=== PATIENT | male | born 1990 | race Caucasian/White ===

== ENCOUNTER 2021-07-20 19:50 | Emergency (ER) | payer BC, OTHER ==
[2021-07-20] MEDS ORDERED: Cyclobenzaprine 10 MG Tab PO ONE (19:51)
[2021-07-20 21:35] VITALS: BP 155/95; PULSE 94
--- NOTE | 2021-07-20 22:15 | CT ---
PROCEDURE INFORMATION: Exam: CT Cervical Spine Without Contrast Exam date and time: 07/20/2021 10:05 PM Age: 31 years old Clinical indication: Neck pain; Additional info: Neck pain, hit head standing up in combine TECHNIQUE: Imaging protocol: Computed tomography images of the cervical spine without contrast. Radiation optimization: All CT scans at this facility use at least one of these dose optimization techniques: automated exposure control; mA and/or kV adjustment per patient size (includes targeted exams where dose is matched to clinical indication); or iterative reconstruction. COMPARISON: No relevant prior studies available. FINDINGS: Bones/joints: No acute fracture. Normal alignment. Discs/Spinal canal/Neural foramina: Mild degenerative changes of the spine. Lungs: Lung apices are normal. Soft tissues: Unremarkable. IMPRESSION: No acute fracture or subluxation is noted.
[2021-07-20] MEDS ORDERED: Cyclobenzaprine 10 MG Tab ONE (22:26)
--- NOTE | 2021-07-20 22:31 | EDM.PDOC ---
ED HPI GENERAL MEDICAL PROBLEM - General Chief Complaint: Laceration Stated Complaint: BLEEDING FROM HEAD Time Seen by Provider: 07/20/21 20:30 Source of Information: Reports: Patient, Family History Limitations: Reports: No Limitations - History of Present Illness INITIAL COMMENTS - FREE TEXT/NARRATIVE: ED with c/o neck pain and forehead laceration. Reports working on [employer] and stood up underneath, thought he was clear but hit head on header of combine while attempting to get to upright position. No loss of consciousness. Tetnus status current within 5 years. no nausea or vomiting. no decreased sensation or weakness. Neck Pain Score (Numeric/FACES): 7 - Related Data Allergies Allergy/AdvReac Type Severity Reaction Status Date / Time No Known Allergies Allergy Verified 07/20/21 21:34 Home Meds: Home Meds . [No Known Home Meds] 04/26/15 [History] Social & Family History - Tobacco Use Tobacco Use Status *Q: Never Tobacco User Second Hand Smoke Exposure: No - Caffeine Use Caffeine Use: Reports: Coffee, Energy Drinks, Soda, Tea, Other - Recreational Drug Use Recreational Drug Use: No ED ROS GENERAL - Review of Systems Review Of Systems: Comprehensive ROS is negative, except as noted in HPI. ED EXAM, SKIN/RASH Exam: See Below Exam Limited By: No Limitations General Appearance: Alert, Mild Distress Eye Exam: Bilateral Eye: EOMI, PERRL Ears: Normal External Exam, Hearing Grossly Normal Nose: Normal Inspection Throat/Mouth: Normal Voice Head: Normocephalic. No: Atraumatic Neck: Tender Lateral, Tender Midline (mid) Respiratory/Chest: No Respiratory Distress, Lungs Clear, Normal Breath Sounds Cardiovascular: Regular Rate, Rhythm Back Exam: Full Range of Motion Extremities: Normal Inspection Neurological: Alert, Oriented, CN II-XII Intact, Normal Cognition, No Motor/Sensory Deficits. No: Sensory/Motor Deficit Skin: Warm, Wound/Incision (5mm abrasion left upper forehead scalp/hair line, mid forehead hairline 1.5 cm superficial laceration. ) Location, Skin: Head ED SKIN PROCEDURES - Laceration/Wound Repair Upper Mid-Anterior Forehead Appearance: Superficial Skin Prep: Chlorhexidine (Hibiciens), Isopropyl Alcohol (Alcohol) Closed with: [place] (3) Lac/Wound length In cm: 2 Tetanus Status Addressed: No Complications: No Course - Vital Signs Last Recorded V/S: Last Vital Signs Temp 98 F 07/20/21 21:34 Pulse 94 07/20/21 21:34 Resp 20 07/20/21 21:34 BP 155/95 H 07/20/21 21:34 Pulse Ox 99 07/20/21 21:34 - Orders/Labs/Meds Meds: Medications Discontinued Medications Generic Name Dose Route Start Last Admin Trade Name Gina PRN Reason Stop Dose Admin Cyclobenzaprine HCl Confirm 07/20/21 22:26 07/20/21 22:35 Cyclobenzaprine 10 Mg Tab Administered 07/20/21 22:27 Not Given Dose 20 mg .ROUTE .STK-MED ONE Departure - Departure Time of Disposition: 22:27 Disposition: Home, Self-Care 01 Condition: Good Clinical Impression: Broken skin, Muscle strain - Discharge Information *PRESCRIPTION DRUG MONITORING PROGRAM REVIEWED*: No *COPY OF PRESCRIPTION DRUG MONITORING REPORT IN PATIENT [place]UL[place]: No Instructions: Concussion, Adult, [id number], Laceration Care, Adult, [id number], Sutures, [place], or Adhesive Wound Closure, [id number] Forms: ED Department Discharge Additional Instructions: light activity shonda out 7-10 days may shower in morning ice to neck area tylenol 650mg every 4-6 hours as needed for discomfort,may alternate with ibuprofen 600mg every 4 hours as needed for discomfort flexeril 10mg 1/2 - 1 tablet every 8 hours as needed for muscle spasm, don not take while working around machinery or driving Sepsis Event Note (ED) - Evaluation Sepsis Screening Result: No Definite Risk - Focused Exam Vital Signs: Vital Signs Temp Pulse Resp BP Pulse Ox 07/20/21 21:34 98 F 94 20 155/95 H 99 07/20/21 20:15 104 H 18 97
== END 2021-07-20 22:40 | disposition home or self-care (01) ==
LOC: DL.ED 19:50
DX: S01.01XA Laceration without foreign body of scalp, initial encounter (principal); W22.09XA Striking against other stationary object, initial encounter
CPT/HCPCS: 12011; 72125; 99283; A9270

== ENCOUNTER 2022-05-26 21:26 | Emergency (ER) | payer OTHER ==
[2022-05-26] MEDS ORDERED: Tetracaine HCl/PF 0.5% 4 ML Bottle ONE (22:30)
[2022-05-26 22:44] VITALS: BP 146/90; PULSE 92
== END 2022-05-26 23:01 | disposition home or self-care (01) ==
LOC: DL.ED 21:26
DX: J02.9 Acute pharyngitis, unspecified (principal)
CPT/HCPCS: 87081; 87430; 99283